=== PATIENT | male | born 1985 | race Caucasian/White ===

== ENCOUNTER 2024-08-18 09:10 | Emergency (ER) | payer MEDICARE, OTHER ==
[2024-08-18 09:15] VITALS: BP 142/65; PULSE 63; RESP 20; TEMP 97.7
--- NOTE | 2024-08-18 09:18 | ED ---
Back Pain HPI - General Source: patient, RN notes reviewed Mode of arrival: EMS Limitations: no limitations - History of Present Illness MD Complaint: back pain, back injury, fall <Penelope Christensen - Last Filed: 08/18/24 09:17> - General Source: patient, RN notes reviewed Mode of arrival: EMS Limitations: no limitations - History of Present Illness MD Complaint: back pain, back injury, fall Onset/Timin -: days(s) Similar Symptoms Previously: Yes Place: home Radiation: none Severity scale (1-10): 8 Consistency: constant Improves With: immobilization Worsens With: movement Context: fall Associated Symptoms: denies other symptoms <Ritesh Dominguez - Last Filed: 08/18/24 11:48> - General Chief Complaint: Back Pain/Injury Stated Complaint: fall,back pain Time Seen by Provider: 08/18/24 09:15 - History of Present Illness Initial Comments: Quick Note: This is a 39-year-old male who presents to the emergency department for back pain after a fall. Patient states that he slipped on his deck and steps about 5 times yesterday because they were wet. Each time he fell he landed and injured his lower back. Denies hitting his head or any loss of consciousness. (Penelope Christensen) This is a 39-year-old male presenting with lower back pain (05/06) following several falls yesterday. Patient states he was attempting to go down some wet, slippery stairs when he slipped and fell backwards, striking his lower back several times. Patient denies striking his head, loss of consciousness or head/neck pain following the falls. Patient Dors is history of back pain from a fall down a flight of stairs in 2022. Patient states he is running out of tramadol for his back and shoulder pain. Denies [id number] medication use prior to arrival. Patient denies radiculopathy, saddle paresthesia, urinary incontinence/retention. (Ritesh Dominguez) - Related Data Allergies Allergy/AdvReac Type Severity Reaction Status Date / Time haloperidol [From Haldol] Allergy Rash/Hives Verified 08/18/24 09:15 Review of Systems ROS Other: All systems not noted in ROS Statement are negative. <Penelope Christensen - Last Filed: 08/18/24 09:17> ROS Other: All systems not noted in ROS Statement are negative. <Ritesh Dominguez - Last Filed: 08/18/24 11:48> ROS Statement: Those systems with pertinent positive or pertinent negative responses have been documented in the HPI. Past Medical History Past Medical History: Diabetes Mellitus History of Any Multi-Drug Resistant Organisms: None Reported Past Surgical History: No Surgical Hx Reported Past Psychological History: Anxiety, Bipolar, Depression Smoking Status: Current every day smoker Past Alcohol Use History: None Reported Past Drug Use History: None Reported <Penelope Christensen - Last Filed: 08/18/24 09:17> General Exam Limitations: no limitations <Penelope Christensen - Last Filed: 08/18/24 09:17> Limitations: no limitations General appearance: alert, in no apparent distress Head exam: Present: atraumatic, normocephalic, normal inspection Eye exam: Present: normal appearance, PERRL, EOMI. Absent: scleral icterus, conjunctival injection, periorbital swelling ENT exam: Present: normal exam, mucous membranes moist Neck exam: Present: normal inspection. Absent: tenderness, meningismus, lymphadenopathy Respiratory exam: Present: normal lung sounds bilaterally. Absent: respiratory distress, wheezes, rales, rhonchi, stridor Cardiovascular Exam: Present: regular rate, normal rhythm, normal heart sounds. Absent: systolic murmur, diastolic murmur, rubs, gallop, clicks GI/Abdominal exam: Present: soft, normal bowel sounds. Absent: distended, tenderness, guarding, rebound, rigid Extremities exam: Present: normal inspection, full ROM, normal capillary refill. Absent: tenderness, pedal edema, joint swelling, calf tenderness Back exam: Present: normal inspection, tenderness, muscle spasm, paraspinal tenderness (Positive lower thoracic and lumbar paraspinal tenderness/muscle spasm), vertebral tenderness (Vertebral tenderness around T10/T11 and L2/L3. Negative crepitus, step-off) Neurological exam: Present: alert, oriented X3, CN II-XII intact Psychiatric exam: Present: normal affect, normal mood Skin exam: Present: warm, dry, intact, normal color. Absent: rash <Ritesh Dominguez - Last Filed: 08/18/24 11:48> - General Exam Comments Initial Comments: Visual Physical Exam Vital signs reviewed General: Well-appearing, nontoxic, no acute distress. Head: Normocephalic, atraumatic Eyes: PERRLA, EOMI ENT: Airway patent Chest: Nonlabored breathing Skin: No visual rash, normal skin tone Neuro: Alert and oriented 3 Musculoskeletal: No gross abnormalities (Penelope Christensen) Course Vital Signs 08/18/24 09:13 Temperature 97.7 F Pulse Rate 63 Respiratory 20 Rate Blood Pressure 142/65 O2 Sat by Pulse 99 Oximetry Medical Decision Making <Penelope Christensen - Last Filed: 08/18/24 09:17> <Ritesh Dominguez - Last Filed: 08/18/24 11:48> - Medical Decision Making I performed the QuickNote portion of this chart. Signed Penelope Christensen PA-C. (Penelope Christensen) Was pt. sent in by a medical professional or institution ([facility], [employer], urgent care, hospital, or fdc...) When possible be specific @ -[No] Did you speak to anyone other than the patient for history (EMS, parent, family, police, friend...)? What history was obtained from this source @ -[No] Did you review nursing and triage notes (agree or disagree)? Why? @ -[I reviewed and agree with nursing and triage notes] Were old charts reviewed (outside hosp., previous admission, EMS record, old EKG, old radiological studies, urgent care reports/EKG's, fdc records)? Report findings @ -[No old charts were reviewed] Differential Diagnosis (chest pain, altered mental status, abdominal pain women, abdominal pain men, vaginal bleeding, weakness, fever, dyspnea, syncope, headache, dizziness, GI bleed, back pain, seizure, CVA, palpatations, mental health, musculoskeletal)? @ -Differential Back Pain: Strain, zoster, cauda equina syndrome, epidural abscess, vertebral osteomyelitis, discitis, fracture, subluxation, disc herniation, DJD, spinal stenosis, dissection, AAA, pancreatitis, peptic ulcer disease, pyelonephritis, kidney stone, this is not meant to be an all-inclusive list. EKG interpreted by me (3pts min.). @ -Not done X-rays interpreted by me (1pt min.). @ -Lumbar x-ray reveals no fractures or dislocation. CT interpreted by me (1pt min.). @ -[None done] U/S interpreted by me (1pt. min.). @ -[None done] What testing was considered but not performed or refused? (CT, X-rays, U/S, labs)? Why? @ -[None] What meds were considered but not given or refused? Why? @ -[None] Did you discuss the management of the patient with other professionals (professionals i.e. , PA, [employer], lab, RT, psych nurse, fat purification worker, ip network architect, teacher, air crew officer, skilled nursing case manager)? Give summary @ -[No] Was smoking cessation discussed for >3mins.? @ -[No] Was critical care preformed (if so, how long)? @ -[No] Were there social determinants of health that impacted care today? How? (Homelessness, low income, unemployed, alcoholism, drug addiction, transportation, low edu. Level, literacy, decrease access to med. care, residential, rehab)? @ -[No] Was there de-escalation of care discussed even if they declined (Discuss DNR or withdrawal of care, Hospice)? DNR status @ -[No] What co-morbidities impacted this encounter? (DM, HTN, Smoking, COPD, CAD, Cancer, CVA, ARF, Chemo, Hep., AIDS, mental health diagnosis, sleep apnea, morbid obesity)? @ -[None] Was patient admitted / discharged? Hospital course, mention meds given and route, prescriptions, significant lab abnormalities, going to OR and other pertinent info. @ -[hospital course] Undiagnosed new problem with uncertain prognosis? @ -[No] Drug Therapy requiring intensive monitoring for toxicity (Heparin, Nitro, Insulin, Cardizem)? @ -[No] Were any procedures done? @ -[No] Diagnosis/symptom? @ -Lower back contusion, muscle spasm Acute, or Chronic, or Acute on Chronic? @ -Acute Uncomplicated (without systemic symptoms) or Complicated (systemic symptoms)? @ -Uncomplicated Side effects of treatment? @ -[No] Exacerbation, Progression, or Severe Exacerbation? @ -[No] Poses a threat to life or bodily function? How? (Chest pain, [place], [place], pneumonia, PE, COPD, DKA, ARF, appy, cholecystitis, CVA, Diverticulitis, Homicidal, Suicidal, threat to staff... and all critical care pts) @ -[No] (Ritesh Dominguez) Disposition <Penelope Christensen - Last Filed: 08/18/24 09:17> Is patient prescribed a controlled substance at d/c from ED?: No Time of Disposition: 10:47 <Ritesh Dominguez - Last Filed: 08/18/24 11:48> Clinical Impression: Mechanical back pain, Strain of lumbar region Disposition: HOME SELF-CARE Condition: Good Instructions (If sedation given, give patient instructions): Acute Low Back Pain (ED) Referrals: Jennifer Elder MD [Primary Care Provider] - 1-2 days
--- NOTE | 2024-08-18 09:45 | XR ---
EXAMINATION TYPE: XR lumbar spine 2 or 3V DATE OF EXAM: 08/18/2024 9:41 AM COMPARISON: None CLINICAL INDICATION: Male, 39 years old with history of Fall; pain TECHNIQUE: XR lumbar spine 2 or 3V - Frontal, lateral and coned in L5-S1 lateral views of the spine. FINDINGS: No evidence of any acute osseous pathology. No evidence of loss of vertebral body height i s seen. There is normal alignment of the lumbar vertebral bodies. Scattered disc space narrowing. Mul tilevel marginal osteophyte formation throughout the visualized spine. There is facet joint arthropat hy throughout the spine. Scattered at least mild neural foraminal stenosis. IMPRESSION: 1. No acute fracture. 2. Mild multilevel disc degeneration. [facility], , 08/18/2024 9:43 AM
[2024-08-18] MEDS: KETOROLAC 15 MG/ML 1 ML VIAL IM STA (11:37)
[2024-08-18] MEDS: ORPHENADRINE 30 MG/ML 2 ML VIAL IM STA (11:38)
== END 2024-08-18 12:06 | disposition home or self-care (01) ==
LOC: EC 09:10
DX: S39.012A Strain of muscle, fascia and tendon of lower back, initial encounter (principal); F17.200 Nicotine dependence, unspecified, uncomplicated; Z88.8 Allergy status to other drugs, medicaments and biological substances; W10.9XXA Fall (on) (from) unspecified stairs and steps, initial encounter
CPT/HCPCS: 72100; 99284; 96372 ×2; J2360; J1885